=== PATIENT | female | born 1995 | race Caucasian/White ===

== ENCOUNTER 2022-12-18 16:00 | Outpatient (CLI) | payer OTHER, SELFPAY | END 2022-12-18 16:01 | disposition home or self-care (01) | PROVIDERS: PCP Preventive Medicine Occupational Medicine; Visit Provider Emergency Medicine | DX: Z00.00 Encounter for general adult medical examination without abnormal findings (principal); R53.83 Other fatigue; R63.0 Anorexia; F41.9 Anxiety disorder, unspecified | CPT/HCPCS: 80053; 82306; 82607; 82728; 83735; 84443 ==

== ENCOUNTER 2023-01-06 19:44 | Outpatient (CLI) | payer OTHER, SELFPAY ==
--- NOTE | 2023-01-15 08:23 | W.PM.SLEEP ---
Sleep Study Details Details Interpreting Provider: Mckenzie Date of Sleep Study: 01/06/23 Sleep Study Details: STUDY TYPE:? Home unattended ? BMI:? 18.7 ORDERING PROVIDER:? Toño INDICATION:? Concerns about sleep apnea ? SLEEP SUMMARY:? 519 minutes monitored RESPIRATORY SUMMARY:? AHI 5.1, supine 6.2, left lateral 3.8, right lateral 4.7 Low oxygen 92 Snoring none PERIODIC LIMB MOVEMENTS OF SLEEP:? Not recorded during home study CARDIAC:? Range 55-118, mean 68.6 IMPRESSION:? Mild obstructive sleep apnea RECOMMENDATION: If patient is symptomatic treatment options include CPAP, dental appliance and/or airway expansion surgery.
== END 2023-01-06 19:45 | disposition home or self-care (01) ==
PROVIDERS: PCP Emergency Medicine; Visit Provider Emergency Medicine
DX: G47.33 Obstructive sleep apnea (adult) (pediatric) (principal)
CPT/HCPCS: 95806